=== PATIENT | female | born 1975 | race Two or more races ===

== ENCOUNTER 2023-07-06 15:50 | Outpatient (REF) | payer OTHER, SELFPAY ==
[2023-07-06 17:27] LABS: Vitamin B12 434 pg/mL (200-900)
== END 2023-07-06 15:51 | disposition home or self-care (01) ==
LOC: HO.LAB 15:50
PROVIDERS: Visit Provider Psychiatry & Neurology Neurology
DX: G31.84 Mild cognitive impairment of uncertain or unknown etiology (principal)
CPT/HCPCS: 36415; 82607